=== PATIENT | male | born 1940 | race Caucasian/White ===

== ENCOUNTER 2016-08-19 23:52 | Inpatient (IN) | payer MEDICARE ==
[~2016-08-19] VITALS: Ht 170.2 cm; Wt 88.0 kg
[2016-08-20 07:08] LABS: RED BLOOD COUNT 5.1 M/UL (4.20-5.50); WHITE BLOOD COUNT 4.6 K/UL (4.5-11.0)
[2016-08-20 07:28] LABS: BUN/CREATININE RATIO 27 (0-10)
[2016-08-21 05:34] LABS: HEMOGLOBIN 14.5 gm/dl (14.0-17.5); RED BLOOD COUNT 5.03 M/UL (4.20-5.50)
[2016-08-21 05:35] LABS: WHITE BLOOD COUNT 8.7 K/UL (4.5-11.0)
[2016-08-21 05:59] LABS: BUN/CREATININE RATIO 33 (0-10)
[2016-08-21 12:36] LABS: HEMOGLOBIN 14.5 gm/dl (14.0-17.5); RED BLOOD COUNT 4.92 M/UL (4.20-5.50)
[2016-08-21 12:42] LABS: WHITE BLOOD COUNT 12.2 K/UL (4.5-11.0)
--- NOTE | 2016-08-21 13:11 | NUR ---
1110 PATIENT FOUND ON FLOOR UNRESPONSIVE CODE BLUE CALLED
--- NOTE | 2016-08-21 13:12 | NUR ---
1145 CORRIE ROB DAUGHTER IN LAW NOTIFIED OF PATIENT TRANSFER TO ICU
--- NOTE | 2016-08-21 13:14 | NUR ---
1138 PATIENT TRANSFERED TO ICU ROOM [id number]
[2016-08-22 06:27] LABS: HEMOGLOBIN 14.6 gm/dl (14.0-17.5); RED BLOOD COUNT 5.01 M/UL (4.20-5.50)
[2016-08-22 06:39] LABS: WHITE BLOOD COUNT 16.4 K/UL (4.5-11.0)
[2016-08-22] MEDS ORDERED: THEO-DUR 200 M200 MG PO (09:26)
[2016-08-22] MEDS ORDERED: OPANA ER20 MG PO (09:27)
[2016-08-22] MEDS ORDERED: MELOXICAM15 MG PO (09:28)
[2016-08-22] MEDS ORDERED: PREDNISONE 10 M10 MG PO (09:29)
[2016-08-22] MEDS ORDERED: AMOX TR-K CLV1 EAC4 PO (09:30)
[2016-08-22] MEDS ORDERED: TERAZOSIN HCL1 MG PO (09:31)
[2016-08-22] MEDS ORDERED: SPIRIVA18 MCG INH (09:32)
[2016-08-22] MEDS ORDERED: PROVENTIL HFA 61 INH INH (09:33)
[2016-08-22] MEDS ORDERED: OXYCODONE HCL10 MG PO (09:35)
[2016-08-22] MEDS ORDERED: SYMBICORT 160-1 INHA INH (09:39)
[2016-08-22] MEDS ORDERED: PROAIR HFA8.5 GM INH (09:40)
[2016-08-23 04:37] LABS: HEMOGLOBIN 12.7 gm/dl (14.0-17.5); WHITE BLOOD COUNT 13.7 K/UL (4.5-11.0)
[2016-08-23 04:38] LABS: RED BLOOD COUNT 4.38 M/UL (4.20-5.50)
[2016-08-24 03:40] LABS: HEMOGLOBIN 12.7 gm/dl (14.0-17.5); RED BLOOD COUNT 4.32 M/UL (4.20-5.50); WHITE BLOOD COUNT 14.8 K/UL (4.5-11.0)
[2016-08-24 04:02] LABS: BUN/CREATININE RATIO 34 (0-10)
[2016-08-25 01:56] LABS: HEMOGLOBIN 12.7 gm/dl (14.0-17.5); RED BLOOD COUNT 4.37 M/UL (4.20-5.50); WHITE BLOOD COUNT 11.5 K/UL (4.5-11.0)
[2016-08-26 03:41] LABS: RED BLOOD COUNT 4.18 M/UL (4.20-5.50); WHITE BLOOD COUNT 11.2 K/UL (4.5-11.0)
[2016-08-26 03:57] LABS: BUN/CREATININE RATIO 38 (0-10)
[2016-08-27 01:23] LABS: HEMOGLOBIN 12.5 gm/dl (14.0-17.5); RED BLOOD COUNT 4.29 M/UL (4.20-5.50)
[2016-08-27 01:28] LABS: WHITE BLOOD COUNT 14.2 K/UL (4.5-11.0)
[2016-08-27 01:41] LABS: BUN/CREATININE RATIO 38 (0-10)
[2016-08-28 01:30] LABS: BUN/CREATININE RATIO 34 (0-10)
[2016-08-28 01:31] LABS: HEMOGLOBIN 12.2 gm/dl (14.0-17.5); RED BLOOD COUNT 4.22 M/UL (4.20-5.50); WHITE BLOOD COUNT 12.8 K/UL (4.5-11.0)
[2016-08-28 19:38] LABS: HEMOGLOBIN 12.3 gm/dl (14.0-17.5); RED BLOOD COUNT 4.24 M/UL (4.20-5.50); WHITE BLOOD COUNT 14.5 K/UL (4.5-11.0)
[2016-08-28 19:58] LABS: BUN/CREATININE RATIO 34 (0-10)
[2016-08-29 03:42] LABS: HEMOGLOBIN 12.2 gm/dl (14.0-17.5); RED BLOOD COUNT 4.24 M/UL (4.20-5.50); WHITE BLOOD COUNT 12.7 K/UL (4.5-11.0)
[2016-08-29 04:08] LABS: BUN/CREATININE RATIO 30 (0-10)
[2016-08-30 03:57] LABS: HEMOGLOBIN 12.5 gm/dl (14.0-17.5); RED BLOOD COUNT 4.38 M/UL (4.20-5.50); WHITE BLOOD COUNT 11.1 K/UL (4.5-11.0)
[2016-08-30 04:22] LABS: BUN/CREATININE RATIO 34 (0-10)
[2016-08-31 03:58] LABS: HEMOGLOBIN 11.3 gm/dl (14.0-17.5); RED BLOOD COUNT 3.97 M/UL (4.20-5.50); WHITE BLOOD COUNT 10.6 K/UL (4.5-11.0)
[2016-08-31 04:04] LABS: BUN/CREATININE RATIO 40 (0-10)
[2016-09-01 03:58] LABS: HEMOGLOBIN 10.8 gm/dl (14.0-17.5); RED BLOOD COUNT 3.75 M/UL (4.20-5.50); WHITE BLOOD COUNT 15.8 K/UL (4.5-11.0)
[2016-09-01 04:19] LABS: BUN/CREATININE RATIO 40 (0-10)
[2016-09-02 04:04] LABS: HEMOGLOBIN 10.5 gm/dl (14.0-17.5); RED BLOOD COUNT 3.68 M/UL (4.20-5.50); WHITE BLOOD COUNT 14.7 K/UL (4.5-11.0)
[2016-09-02 04:24] LABS: BUN/CREATININE RATIO 46 (0-10)
[2016-09-03 06:20] LABS: HEMOGLOBIN 10.9 gm/dl (14.0-17.5); RED BLOOD COUNT 3.84 M/UL (4.20-5.50); WHITE BLOOD COUNT 15.1 K/UL (4.5-11.0)
[2016-09-03 06:57] LABS: BUN/CREATININE RATIO 43 (0-10)
[2016-09-04 05:18] LABS: HEMOGLOBIN 9.6 gm/dl (14.0-17.5); WHITE BLOOD COUNT 13.4 K/UL (4.5-11.0)
[2016-09-04 05:23] LABS: RED BLOOD COUNT 3.41 M/UL (4.20-5.50)
[2016-09-04 05:37] LABS: BUN/CREATININE RATIO 46 (0-10)
[2016-09-05 02:20] LABS: HEMOGLOBIN 9.3 gm/dl (14.0-17.5); RED BLOOD COUNT 3.25 M/UL (4.20-5.50); WHITE BLOOD COUNT 14.2 K/UL (4.5-11.0)
[2016-09-05 02:48] LABS: BUN/CREATININE RATIO 48 (0-10)
[2016-09-05 12:57] LABS: HEMOGLOBIN 9.6 gm/dl (14.0-17.5)
[2016-09-06 03:35] LABS: HEMOGLOBIN 8.3 gm/dl (14.0-17.5); RED BLOOD COUNT 2.94 M/UL (4.20-5.50)
[2016-09-06 03:37] LABS: WHITE BLOOD COUNT 9.8 K/UL (4.5-11.0)
[2016-09-06 03:59] LABS: BUN/CREATININE RATIO 53 (0-10)
[2016-09-07 03:41] LABS: HEMOGLOBIN 9.6 gm/dl (14.0-17.5)
[2016-09-07 03:43] LABS: RED BLOOD COUNT 3.41 M/UL (4.20-5.50); WHITE BLOOD COUNT 13.4 K/UL (4.5-11.0)
[2016-09-07 04:02] LABS: BUN/CREATININE RATIO 53 (0-10)
[2016-09-07 15:19] LABS: TOTAL PROTEIN, BODY FLUID 1.6 gm/dL
== END 2016-09-07 16:30 | DRG 3 ==
LOC: CCU 23:52 → PROG CARE 08-20 22:00 → CCU 08-21 11:42
PROVIDERS: Emergency Medicine; Internal Medicine; Internal Medicine Gastroenterology; Internal Medicine Infectious Disease; Internal Medicine Pulmonary Disease; Surgery; ADMIT Internal Medicine
PROC: 5A1955Z Respiratory Ventilation, Greater than 96 Consecutive Hours (ICD-10-PCS; 2016-08-21)
PROC: 0BH17EZ Insertion of Endotracheal Airway into Trachea, Via Natural or Artificial Opening (ICD-10-PCS; 2016-08-21)
PROC: 02HV33Z Insertion of Infusion Device into Superior Vena Cava, Percutaneous Approach (ICD-10-PCS; 2016-08-22)
PROC: B548ZZA Ultrasonography of Superior Vena Cava, Guidance (ICD-10-PCS; 2016-08-22)
PROC: 027034Z Dilation of Coronary Artery, One Artery with Drug-eluting Intraluminal Device, Percutaneous Approach (ICD-10-PCS; 2016-08-28)
PROC: 4A023N8 Measurement of Cardiac Sampling and Pressure, Bilateral, Percutaneous Approach (ICD-10-PCS; 2016-08-28)
PROC: B2111ZZ Fluoroscopy of Multiple Coronary Arteries using Low Osmolar Contrast (ICD-10-PCS; 2016-08-28)
PROC: 0DH63UZ Insertion of Feeding Device into Stomach, Percutaneous Approach (ICD-10-PCS; 2016-09-02)
PROC: 0DJ08ZZ Inspection of Upper Intestinal Tract, Via Natural or Artificial Opening Endoscopic (ICD-10-PCS; 2016-09-02)
PROC: 0B110F4 Bypass Trachea to Cutaneous with Tracheostomy Device, Open Approach (ICD-10-PCS; principal; 2016-09-02 12:15)
PROC: 0W9930Z Drainage of Right Pleural Cavity with Drainage Device, Percutaneous Approach (ICD-10-PCS; 2016-09-07)
DX: I11.0 Hypertensive heart disease with heart failure (principal); J96.21 Acute and chronic respiratory failure with hypoxia; R57.0 Cardiogenic shock; J96.22 Acute and chronic respiratory failure with hypercapnia; J15.1 Pneumonia due to Pseudomonas; I46.9 Cardiac arrest, cause unspecified; J90 Pleural effusion, not elsewhere classified; N17.9 Acute kidney failure, unspecified; J44.1 Chronic obstructive pulmonary disease with (acute) exacerbation; E46 Unspecified protein-calorie malnutrition; E87.2 Acidosis; Z99.11 Dependence on respirator [ventilator] status; I48.92 Unspecified atrial flutter; I47.1 Supraventricular tachycardia; F23 Brief psychotic disorder; J95.01 Hemorrhage from tracheostomy stoma; I50.23 Acute on chronic systolic (congestive) heart failure; I48.0 Paroxysmal atrial fibrillation; I25.10 Atherosclerotic heart disease of native coronary artery without angina pectoris; I25.5 Ischemic cardiomyopathy; I25.82 Chronic total occlusion of coronary artery; D50.9 Iron deficiency anemia, unspecified; I27.2 Other secondary pulmonary hypertension; E11.65 Type 2 diabetes mellitus with hyperglycemia; E87.5 Hyperkalemia; E87.6 Hypokalemia; I08.1 Rheumatic disorders of both mitral and tricuspid valves; Y83.8 Other surgical procedures as the cause of abnormal reaction of the patient, or of later complication, without mention of misadventure at the time of the procedure; Y82.8 Other medical devices associated with adverse incidents; N40.0 Benign prostatic hyperplasia without lower urinary tract symptoms; G89.4 Chronic pain syndrome; R74.8 Abnormal levels of other serum enzymes; Z04.3 Encounter for examination and observation following other accident; W06.XXXA Fall from bed, initial encounter; Y92.230 Patient room in hospital as the place of occurrence of the external cause; F41.9 Anxiety disorder, unspecified; I25.2 Old myocardial infarction; Z87.891 Personal history of nicotine dependence; Z85.46 Personal history of malignant neoplasm of prostate; Z72.3 Lack of physical exercise; Z68.23 Body mass index [BMI] 23.0-23.9, adult; Z99.81 Dependence on supplemental oxygen; Z79.891 Long term (current) use of opiate analgesic; Z79.82 Long term (current) use of aspirin; Z79.899 Other long term (current) drug therapy; Z88.5 Allergy status to narcotic agent; Z98.890 Other specified postprocedural states; Z82.49 Family history of ischemic heart disease and other diseases of the circulatory system
CPT/HCPCS: ECHO; 31500; 36415; 36600; 70450; 71010; 71250; 80048; 80053; 80061; 81001; 82330; 82533; 82550; 82553; 82607; 82728; 82803; 82810; 82945; 82962; 83036; 83540; 83550; 83615; 83735; 83880; 84100; 84132; 84157; 84439; 84443; 84484; 85014; 85018; 85025; 85027; 85610; 85730; 87040; 87070; 87077; 87086; 87186; 87205; 92950; 93005; 93306; 94002; 94003; 94640; 94664; 97110; A4628; C1725; C1751; C1769; C1874; C1887; C9600; J0171; J0282; J0461; J0583; J0696; J1120; J1160; J1250; J1327; J1644; J1650; J1720; J1940; J1956; J2060; J2250; J2370; J2543; J2920; J3010; J3480; J7030; J7040; J7050; J7070; J7120; Q9963